=== PATIENT | male | born 1995 | race Caucasian/White ===

== ENCOUNTER 2019-08-15 13:02 | Emergency (ER) | payer OTHER, SELFPAY ==
[2019-08-15 13:12] VITALS: BP 113/83; PULSE 61; RESP 20; TEMP 36.7; O2SAT 100
--- NOTE | 2019-08-15 13:24 | ED.GENADULT ---
HPI - General Adult General Chief complaint: Unspecified Stated complaint: NEEDS RING CUT OFF Time Seen by Provider: 08/15/19 13:24 Source: patient Mode of arrival: ambulatory Limitations: no limitations History of Present Illness HPI narrative: A 23 y/o male presents to the ED with c/o a tungsten ring stuck on his right middle finger. Pt normally does not wear the ring on his middle finger, but had it on his middle finger last night and fell asleep wearing it. Pt states that the ring is a size 12 and his middle finger is probably a size 14. He denies numbness. Related Data Allergies Allergy/AdvReac Type Severity Reaction Status Date / Time ASAD Allergy Severe Anaphylactic Uncoded 08/15/19 13:15 Shock Review of Systems Review of Systems: Narrative: Constitutional: Negative for fever and chills. HENT: Negative for congestion. Eyes: Negative for blurred vision. Respiratory: Negative for cough and shortness of breath. Cardiovascular: Negative for chest pain. Gastrointestinal: Negative for nausea, vomiting, abdominal pain and diarrhea. Genitourinary: Negative for dysuria and hematuria. Musculoskeletal: Positive for ring stuck on right middle finger. Negative for back pain and neck pain. Neurological: Negative for numbness, headaches, or focal motor deficit. All systems reviewed & are unremarkable except as noted in HPI and below PMFSH Past Medical History Medical History (Updated 08/15/19 @ 14:26 by Temi Soto MD) Ankle fracture, right Constipation Depression Left wrist fracture Migraine Surgical History Surgical History (Updated 08/15/19 @ 13:30 by Ayanna Jim) H/O adenoidectomy Hx of tonsillectomy Social History Social History (Updated 08/15/19 @ 13:30 by Ayanna Jim) Smoking status: Smoker, status unknown Gender identity (if verbalized by the patient): Male Comments PCP: Dr. Santiago Exam Narrative: Exam Narrative: Constitutional: Appears well-developed. No distress. Head: Normocephalic. Nose: Nose normal. Mouth/Throat: Oropharynx is clear and moist. Eyes: Conjunctiva are normal. Neck: Normal range of motion. Neck supple. Cardiovascular: Normal rate and regular rhythm. Pulmonary/Chest: Effort normal and breath sounds normal. Abdominal: Soft. There is no tenderness. Musculoskeletal: Ring on right middle finger, slightly swollen. Neurological: Alert and oriented to person, place, and time. Skin: Skin is warm. No pallor. Psychiatric: Normal mood and affect. Course Reevaluation(s) Reevaluation #1: The ring was removed with a ring cutter. Date: 08/15/19 Time: 14:18 Vital Signs Vital signs: Vital Signs Temperature 36.7 C 08/15/19 13:12 Pulse Rate 61 08/15/19 13:12 Respiratory Rate 20 08/15/19 13:12 Blood Pressure 113/83 08/15/19 13:12 Pulse Oximetry 100 08/15/19 13:12 Temperature 36.7 C 08/15/19 13:12 Pulse Rate 61 08/15/19 13:12 Respiratory Rate 20 08/15/19 13:12 Blood Pressure 113/83 08/15/19 13:12 Pulse Oximetry 100 08/15/19 13:12 Medical Decision Making Vital Signs Vital Signs: Vital Signs Temperature 36.7 C 08/15/19 13:12 Pulse Rate 61 08/15/19 13:12 Respiratory Rate 20 08/15/19 13:12 Blood Pressure 113/83 08/15/19 13:12 Pulse Oximetry 100 08/15/19 13:12 Temperature 36.7 C 08/15/19 13:12 Pulse Rate 61 08/15/19 13:12 Respiratory Rate 20 08/15/19 13:12 Blood Pressure 113/83 08/15/19 13:12 Pulse Oximetry 100 08/15/19 13:12 Discharge Plan Discharge Clinical Impression: Tight ring on finger Patient Disposition: Home, Self-Care Condition: Stable Instructions: Soft Tissue Foreign Body (ED) Follow-up/Referrals: PHYSICIAN,CD MANUFACTURING SUPERVISOR [Primary Care Provider] - Discharge Date/Time: 08/15/19 14:37
== END 2019-08-15 14:37 | disposition home or self-care (01) ==
PROVIDERS: Emergency Provider Emergency Medicine
DX: S60.442A External constriction of right middle finger, initial encounter (principal); W49.04XA Ring or other jewelry causing external constriction, initial encounter
CPT/HCPCS: 99282

== ENCOUNTER 2019-09-17 12:08 | Emergency (ER) | payer OTHER, SELFPAY ==
[2019-09-17 12:16] VITALS: BP 115/74; PULSE 65; RESP 20; TEMP 36.4; O2SAT 97
--- NOTE | 2019-09-17 12:51 | ED.URI ---
HPI - URI/Sore Throat General Chief Complaint: Upper Respiratory Infection Stated Complaint: Ear pain, sore throat Time Seen by Provider: 09/17/19 12:51 Source: patient Mode of arrival: ambulatory Limitations: no limitations History of Present Illness HPI Narrative: Duane Vernon is a 23 yo male with no prior medical condition who comes to the doctor's office because of upper respiratory symptoms of severe throat sore throat nasal discharge and differential difficulty breathing when lying down at night, has cough particularly at night but also during the day. Has felt this way x2 days Related Data Allergies Allergy/AdvReac Type Severity Reaction Status Date / Time ASAD Allergy Severe Anaphylactic Uncoded 09/17/19 12:31 Shock Review of Systems Review of Systems: Narrative: CONSTITUTIONAL: Denies fever, chills, sweats. EYES: Denies visual changes, redness, discharge. ENT: Has rhinorrhea, congestion, sore throat, otalgia. CARDIOVASCULAR: Denies chest pain, palpitations, edema. RESPIRATORY: Denies dyspnea, has wheezing, has cough GASTROINTESTINAL: Denies abdominal pain, nausea, vomiting, diarrhea. GENITOURINARY: Denies dysuria, hematuria, abnormal discharge SKIN: Denies rash or itching. NEUROLOGIC: Denies numbness, or focal weakness. PSYCHIATRIC: Denies anxiety or depression. 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 There is no relevant family history pertinent to the presenting complaint. Exam Narrative: Exam Narrative: GENERAL: This is a well-nourished, well-developed patient, in mild distress. HEAD: normocephalic, atraumatic. EYES: Sclera clear/white. Vision is grossly intact. EARS: External ears normal, auditory canals clear, R without drainage,L is tender w effusion. TMs normal without perforation. Hearing grossly intact. NOSE: External nose normal with nasal discharge, nares with redness, rhinorrhea. THROAT: Mucous membranes moist, posterior pharynx erythema NECK: Neck supple, non-tender CARDIOVASCULAR: Regular rate and rhythm without murmurs, gallops, or rubs. RESPIRATORY: Diminished to auscultation. Breath sounds equal bilaterally. Mild diffuse wheezes, no rales, or rhonchi. GASTROINTESTINAL: Abdomen soft, non-tender, SKIN: warm, intact with no suspicious lesions or rash, good texture and turgor. NEURO: awake, alert, and oriented to person, place and time. There were no obvious focal neurologic abnormalities. Steady gait EXTREMITIES: Normal range of motion. No edema. BACK: Nontender without deformity or crepitance. No flank tenderness. Course Course Emergency Course: Flu negative, strep negative Treat symptoms: Prednisone, codeine cough syrup, Mucinex, cepacol Vital Signs Vital signs: Vital Signs Temperature 97.5 F L 09/17/19 12:16 Pulse Rate 65 09/17/19 12:16 Respiratory Rate 20 09/17/19 12:16 Blood Pressure 115/74 09/17/19 12:16 Pulse Oximetry 97 09/17/19 12:16 Temperature 97.5 F L 09/17/19 12:16 Pulse Rate 65 09/17/19 12:16 Respiratory Rate 20 09/17/19 12:16 Blood Pressure 115/74 09/17/19 12:16 Pulse Oximetry 97 09/17/19 12:16 MDM - URI/Sore Throat Differential Diagnosis Differential
== END 2019-09-17 13:03 | disposition home or self-care (01) ==
PROVIDERS: Emergency Provider Nurse Practitioner; PCP Family Medicine
DX: J06.9 Acute upper respiratory infection, unspecified (principal); J02.9 Acute pharyngitis, unspecified
CPT/HCPCS: 87081; 87804; 87880; 99213; G0463

== ENCOUNTER 2021-04-20 08:51 | Emergency (ER) | payer OTHER, SELFPAY ==
--- NOTE | ~2021-04-20 | XR_ITS ---
XR chest 2V DATE: 04/20/2021 10:13 INDICATION: Psych evaluation TECHNIQUE: PA and lateral chest COMPARISON: None FINDINGS: Normal heart size. No hilar or mediastinal enlargement. The lungs are clear of infiltrate o r consolidation. No pleural effusion or pulmonary vascular congestion or pneumothorax. Included skele alexander structures are unremarkable. IMPRESSION: No active cardiopulmonary disease Reviewed, dictated and finalized at location A.
[2021-04-20 09:00] VITALS: BP 146/89; PULSE 84; RESP 16; TEMP 37.4; O2SAT 100
--- NOTE | 2021-04-20 09:55 | ED.GENADULT ---
HPI - General Adult General Chief complaint: Psychiatric Symptoms Stated complaint: wants help with Adderall addiction Time Seen by Provider: 04/20/21 09:54 Source: patient Mode of arrival: ambulatory Limitations: no limitations History of Present Illness HPI narrative: Patient came in at the request of his for his Adderall addiction and his decision last night to contact someone else regarding other drug to purchase. He tells me that he has been taking his mother's Adderall off and on for the last 5 years, he was clean for 9 months in the last few weeks began taking approximately 5 pills at a time and taking them over the course of the week. There are 20 mg tabs. He states that he has not in the past thought of harming himself but today when his threw him out he thought he may be better off and considered taking a loaded handgun from their home when he left. He did not and he believes his is move those guns to her parents house. He has no homicidal ideation. He states that there is a long history of mental health issues in the family including a suicide by the maternal grandfather. He is here today because his told him he needs to get some help. Onset (ago): year(s) Related Data Home Medications Medication Instructions Recorded Confirmed No Home Medications 04/20/21 Allergies Allergy/AdvReac Type Severity Reaction Status Date / Time ASAD Allergy Severe Anaphylactic Uncoded 04/20/21 09:05 Shock Review of Systems Review of Systems: All systems reviewed & are unremarkable except as noted in HPI and below [facility] Past Medical History Medical History (Updated 04/20/21 @ 22:18 by Kaye Ricardo PA-C) Ankle fracture, right Constipation Depression Left wrist fracture Migraine Surgical History Surgical History H/O adenoidectomy Hx of tonsillectomy Family History Family History Other No active medical problems Social History Social History (Updated 04/20/21 @ 10:09 by Kaye Ricardo PA-C) Smoking status: Current every day smoker Tobacco type: cigarettes Alcohol intake: never Substance use type: amphetamines and prescription drug Living arrangements: with family Occupation/Education: unemployed Gender identity (if verbalized by the patient): Male Exam Const: General: cooperative, healthy appearing and comfortable HENMT: Mouth: Yes Normal oral and palatal mucosa present Teeth and gingiva: dentition normal Throat: posterior oropharynx normal Eyes: General: appearance normal, both eyes and all related structures Neck: Neck: no lymphadenopathy Resp: Effort & Inspection: normal respiratory effort Auscultation: clear to auscultation bilaterally Cardio: Rate: regular rate Rhythm: regular rhythm GI: Inspection: normal to inspection GI Palp: Yes Soft to palpation Auscultation: normal bowel sounds Skin: General skin exam: normal color Lesions: lesion noted (scalp and legs, pt states from picking) Neuro: General: patient oriented x3 and moves all extremities Cognition (Neuro): normal cognition Speech: normal speech Extrem: General: normal to inspection, full ROM and capillary refill normal Psych: Appearance: disheveled Speech and movement: Normal speech and movement present Affect: normal affect Attitude: cooperative Thought process: Normal thought process present Thought content: Yes Suicidality present Course Course Emergency Course: Patient is medically cleared to be evaluated by psych intake. His drug screen is positive only for amphetamines and marijuana and he is admitted to both. Patient is cleared for inpatient psychiatric treatment. 2200: Patient's mother is here and asking for an update and for the patient be released to her care. She assures me that they have cleaned up all the weapons and swept the house for pills, they have l
--- NOTE | 2021-04-20 10:00 | PC.NURSE ---
ERPA to bedside for pt assessment. When speaking with pt, pt disclosed to PA that he has been having suicidal thoughts today. Pt disclosed to PA that he has been having thoughts to get ahold of a gun and hurt himself. Pt moved to room 15 for safety. Pt placed in paper scrubs and belongings secured at nurses station. Pt placed on 1:1 observation. Pt agreeable to plan for medical clearance and crisis evaluation.
--- NOTE | 2021-04-20 10:04 | ECG_ITS ---
Measurements Intervals [place] Rate: 78 P: 50 WA: 162 QRS: -5 QRSD: 100 T: -3 QT: 348 QTc: 397 Interpretive Statements SINUS RHYTHM WITH SINUS ARRHYTHMIA DELAYED PRECORDIAL R/S TRANSITION BASELINE ARTIFACT- I, II, III, AVF BORDERLINE ECG Electronically Signed On 04-20-2021 11:04:32 CDT by Alden Collins D.O.
[2021-04-20 10:32] LABS: Basophils Absolute Auto 0.1 K/mm3 (0.0-0.1); Basophils Percent Auto 0.7 % (0.2-1.2); Eosinophils Absolute Auto 0.3 K/mm3 (0-0.3); Eosinophils Percent Auto 3.5 % (0-4.4); Hematocrit 42.3 % (42.0-52.0); Hemoglobin 14.4 g/dL (14.0-18.0); Immature Granulocyte Absolute 0.03 K/mm3 (0.00-0.031); Immature Granulocyte Percent A 0.4 % (0-0.5); Lymphocytes Percent Auto 17.3 % (18.3-44.2); Mean Corpuscular Hemoglobin 32.4 pg (26-34); Mean Corpuscular Volume 95.1 fl (80-100); Monocytes Absolute Auto 0.6 K/mm3 (0.1-0.6); Monocytes Percent Auto 8.3 % (2.6-8.5); Neutrophils Absolute Auto 5.3 K/mm3 (1.3-6.7); Neutrophils Percent Auto 69.8 % (45.5-73.1); Platelet Count Result 248 k/mm3 (150-375); Red Blood Count 4.45 M/mm3 (4.6-6.20); Red Cell Distribution Width 13.3 % (11.5-14.5); White Blood Count 7.5 K/mm3 (4.5-10.0)
[2021-04-20 10:52] LABS: Ethanol < 10 mg/dL (<10)
[2021-04-20 10:53] LABS: Alanine Aminotransferase 16 U/L (4-50); Albumin Level 4.6 g/dL (3.5-5.1); Alkaline Phosphatase 77 U/L (38-126); Anion Gap 9 mmol/L (8-16); Aspartate Amino Transferase 23 U/L (17-59); Bilirubin,Total 0.3 mg/dL (0.2-1.3); Blood Urea Nitrogen 15 mg/dL (9-20); Calcium 9.5 mg/dL (8.4-10.2); Carbon Dioxide 25 mmol/L (22-30); Chloride 112 mmol/L (98-107); Estimated CRCL calculation 167 ml/min; Estimated Glomerular Filt Rate > 60; Glucose 106 mg/dL (65-110); Potassium 3.8 mmol/L (3.4-5.0); Sodium 146 mmol/L (137-145)
[2021-04-20 11:22] LABS: Thyroid Stimulating Hormone 0.666 uIU/mL (0.465-4.680)
[2021-04-20 11:27] LABS: Add Urine Microscopic? YES; Appearance Urine Clear (Clear); Bilirubin Urine Negative (Negative); Blood Urine Negative (Negative); Color Urine Yellow (Yellow); Glucose Urine UA Negative (Negative); Ketones Urine Negative (Negative); Leukocyte Esterase Ur Negative LEU/UL (Negative); Mucus Urine Heavy /lpf; Nitrate Urine Negative (Negative); Protein Urine 1+ mg/dL (Negative); RBC Urine 0-2 /hpf (0-2); Squamous Epithelial Cell Urine Rare /hpf (Few); Urobilinogen Urine Negative mg/dL (<2.0); WBC Urine 0-3 /hpf
[2021-04-20 12:14] LABS: Barbiturate Screen Urine Negative (Negative); Benzodiazepines Screen Urine Negative (Negative)
[2021-04-20 12:17] LABS: Amphetamine Screen Urine Positive (Negative); Cannabinoid Screen Urine Positive (Negative); Cocaine Screen Urine Negative (Negative); Methadone Screen Urine Negative (Negative); Opiate Screen Urine Negative (Negative); Phencyclidine Screen Urine Negative (Negative)
--- NOTE | 2021-04-20 15:00 | PC.NURSE ---
Patient states he is voluntary for psychiatric placement. COVID swab obtained for bed placement. Gina from crisis also reports patient was very hesitant at first for psychiatric treatment so an involuntary petition was also signed.
[2021-04-20 15:19] LABS: EDCOVIDSCREEN Negative (Negative)
--- NOTE | 2021-04-20 15:31 | PC.NURSE ---
COVID result negative, Gina contacted and is attempting to find bed placement.
[2021-04-20 18:21] LABS: Acetaminophen < 10 ug/mL (10-30); Salicylate < 1.0 mg/dL (2-20)
[2021-04-20 18:50] VITALS: BP 124/72; PULSE 72; RESP 18; O2SAT 98
--- NOTE | 2021-04-20 19:13 | PC.NURSE ---
Pt sitting upright in bed, conversing with sitter at bedside. Assumed care of pt.
--- NOTE | 2021-04-20 21:37 | PC.NURSE ---
Benjie, staff at [facility] called ED and requested update from this RN. reports she will present pt to team and they will call us back with decision.
--- NOTE | 2021-04-20 21:43 | PC.NURSE ---
Pt in ED 15. No medical monitoring equipment present in room. No unnecessary supplies in room.
--- NOTE | 2021-04-20 21:57 | PC.NURSE ---
Pt accepted at [facility] by Dr. Rodgers. Report given to Benjie RN, Pt assigned to room 318.
--- NOTE | 2021-04-20 22:19 | PC.NURSE ---
[facility] notified of pt transfer and need for transport.
--- NOTE | 2021-04-20 22:23 | PC.NURSE ---
called [facility] to request transport. They will call back with and ETA after getting insulation supervisor approval.
--- NOTE | 2021-04-20 22:39 | PC.NURSE ---
Pt refused to sign EMTALA consent for transport.
--- NOTE | 2021-04-20 22:48 | PC.NURSE ---
called [facility] to request transport.
--- NOTE | 2021-04-20 22:58 | PC.NURSE ---
Sitter remains at bedside. Mother in recliner at bedside. This RN informed by melody that pt getting agitated and upset that he is involuntary and he wants to go to [facility], not [facility] [place]. This RN in to speak with pt - Explained safety concerns for pt if he attempts to elope. This RN updated ED MD Phillip, who ordered PO Ativan for pt. Offered to pt, who refused it.
--- NOTE | 2021-04-20 23:11 | PC.NURSE ---
[facility] left the facility. Called [facility] to inquire- they are a 911 truck. called [facility] - declined [facility] declined. Requesting [facility].
--- NOTE | 2021-04-20 23:39 | PC.NURSE ---
Erin only doing emergency calls timmy. Called [facility] to request transport. Accepted. ETA 1 hour 20 minutes. Unit coming from [facility].
--- NOTE | 2021-04-20 23:44 | PC.NURSE ---
Pt apologized to this RN for prior behavior. verbalized understanding of transfer. a/o x 4. again declined PO ativan.
--- NOTE | 2021-04-20 23:45 | PC.NURSE ---
[facility] ETA now 0100. Susan Waldrop updated on pt condition.
[2021-04-21 01:18] VITALS: BP 131/83; PULSE 71; RESP 18; TEMP 36.7; O2SAT 98
== END 2021-04-21 01:28 ==
PROVIDERS: Physician Assistant; Emergency Provider Emergency Medicine; PCP Family Medicine
DX: R45.851 Suicidal ideations (principal); F15.90 Other stimulant use, unspecified, uncomplicated; Z20.822 Contact with and (suspected) exposure to COVID-19
CPT/HCPCS: 36415; 71046; 80053; 80307; 81001; 84443; 85025; 87426; 93005; 99285; C9803

== ENCOUNTER 2022-07-05 15:21 | Inpatient (IN) | payer OTHER, SELFPAY ==
[2022-07-05] VITALS (20 sets, daily range): BP systolic 130–163; BP diastolic 72–94; PULSE 73–93; RESP 10–21; TEMP 37–37.3; O2SAT 99–100
--- NOTE | ~2022-07-05 | CT_ITS ---
EXAMINATION: CT diagnostic chest w con DATE: 07/09/2022 09:33 INDICATION: Pneumonia and shortness of breath TECHNIQUE: Transaxial computed tomographic images of the chest were obtained after the administration of 75 cc of Omnipaque 350 intravenous contrast. The dose-length product (DLP) was 248.05 mGy-cm. Ite rative reconstruction was used. COMPARISON: 07/05/2022 FINDINGS: Again seen are numerous subcentimeter bilateral nodules, with a mid and lower lung zone pre dominance, without significant change. No pleural effusion or pneumothorax. No pathologically enlarge d thoracic lymph nodes are identified. The heart size is normal. Mild bilateral gynecomastia is noted . IMPRESSION: 1. Multiple bilateral pulmonary nodules without significant change, likely infectious/inflammatory or less likely septic emboli. Reviewed, dictated and finalized at location L. L POLISHER IMPRESSION: 1. Multiple bilateral pulmonary nodules without significant change, likely infe ctious/inflammatory or less likely septic emboli.
--- NOTE | ~2022-07-05 | CT_ITS ---
EXAMINATION: CTA chest PE protocol DATE: 07/05/2022 21:29 INDICATION: Chest pain, dyspnea TECHNIQUE: Computed tomography angiography (CTA) of the chest was performed with 100 mL Omnipaque-350 intravenous contrast timed to evaluate the pulmonary arteries. Coronal maximum intensity projection 3D-reconstructions were created by the technologist. Automated exposure control and iterative reconst ruction technique were employed. Exam dose: 412.85 mGy-cm total exam DLP. COMPARISON: 07/05/2022 2 view chest FINDINGS: There is diagnostic contrast enhancement of the pulmonary arteries and no evidence of pulmo nary embolism. No thoracic aortic aneurysm or dissection. No hilar or mediastinal mass lesion or lymphadenopathy. There are numerous scattered predominantly peripheral shaggy appearing small nodular densities, most numerous in the lower lobes, greater on the right, likely infectious, or possibly septic emboli. Normal morphology of the adrenal glands. IMPRESSION: Numerous bilateral peripheral shaggy small nodular infiltrates or densities scattered th roughout both lungs, most prominent in the lower lobes, right greater than left. Consider bilateral p neumonia, granulomatous disease, septic pulmonary emboli No pulmonary artery emboli Reviewed, dictated and finalized at Location A. Reviewed, dictated and finalized at location A. [employer]ING [employer] IMPRESSION: Numerous bilateral peripheral shaggy small nodular infiltrates or densities scattered throughout both lungs, most prominent in the lower lobes, r ight greater than left. Consider bilateral pneumonia, granulomatous disease, se ptic pulmonary emboli No pulmonary artery emboli
--- NOTE | ~2022-07-05 | XR_ITS ---
Clinical Indication: Chest pain PA and lateral views of the chest: Comparison: 04/20/2021 Findings: The lungs are clear, without evidence of focal consolidation or pleural effusion. Cardiome diastinal silhouette is within normal limits. Bones and soft tissues are unremarkable. Impression: Normal chest. Reviewed, dictated and finalized at location . F MEDICAL OFFICER Impression: Normal chest.
--- NOTE | 2022-07-05 15:29 | ECG_ITS ---
Measurements Intervals [place] Rate: 77 P: 58 MD: 162 QRS: 9 QRSD: 101 T: 36 QT: 357 QTc: 406 Interpretive Statements SINUS RHYTHM WITH SINUS ARRHYTHMIA NORMAL ELECTROCARDIOGRAM COMPARED TO ECG 04/20/2021 10:57:58 NO SIGNIFICANT CHANGES Electronically Signed On 07-05-2022 20:08:56 FREIGHT FLOW SALES LEADER by Mohamud Hart M.D.
[2022-07-05 15:49] LABS: Basophils Absolute Auto 0.1 K/mm3 (0.0-0.1); Basophils Percent Auto 0.5 % (0.2-1.2); Eosinophils Absolute Auto 0.5 K/mm3 (0-0.3); Eosinophils Percent Auto 5.2 % (0-4.4); Hematocrit 44.2 % (42.0-52.0); Hemoglobin 14.8 g/dL (14.0-18.0); Immature Granulocyte Absolute 0.02 K/mm3 (0.00-0.031); Immature Granulocyte Percent A 0.2 % (0-0.5); Lymphocytes Absolute Auto 2.06 K/mm3 (0.9-3.2); Mean Corpuscular HGB Conc 33.5 g/dl (32-36); Mean Corpuscular Hemoglobin 31.2 pg (26-34); Mean Corpuscular Volume 93.2 fl (80-100); Mean Platelet Volume 10.7 fl (7.4-10.4); Monocytes Absolute Auto 0.8 K/mm3 (0.1-0.6); Monocytes Percent Auto 8.1 % (2.6-8.5); Neutrophils Absolute Auto 6.4 K/mm3 (1.3-6.7); Platelet Count Result 257 k/mm3 (150-375); Red Blood Count 4.74 M/mm3 (4.6-6.20); Red Cell Distribution Width 12.6 % (11.5-14.5); White Blood Count 9.8 K/mm3 (4.5-10.0)
[2022-07-05 15:58] LABS: Alanine Aminotransferase 18 U/L (6-50); Albumin Level 4.7 g/dL (3.5-5.1); Alkaline Phosphatase 87 U/L (38-126); Anion Gap 7 mmol/L (8-16); Aspartate Amino Transferase 22 U/L (17-59); Bilirubin,Total 0.4 mg/dL (0.2-1.3); Blood Urea Nitrogen 16 mg/dL (9-20); Carbon Dioxide 28 mmol/L (22-30); Chloride 108 mmol/L (98-107); Estimated CRCL calculation 155 ml/min; Estimated Glomerular Filt Rate > 60; Glucose 98 mg/dL (65-110); INR 1.1; Lipase 42 U/L (23-300); Potassium 3.5 mmol/L (3.4-5.0); Prothrombin Time 13.7 Seconds (11.1-14.7); Sodium 143 mmol/L (137-145)
[2022-07-05 15:59] LABS: Partial Thromboplastin Time 33.2 SECONDS (22.3-36.8)
[2022-07-05 16:09] LABS: Troponin I < 0.012 ng/mL (0.000-0.034)
[2022-07-05 19:08] LABS: Troponin I < 0.012 ng/mL (0.000-0.034)
--- NOTE | 2022-07-05 20:34 | ED.CHESTPAIN ---
HPI - Chest Pain General Chief Complaint: Chest Pain Stated Complaint: chest and neck pain Time Seen by Provider: 07/05/22 20:29 Source: RN notes reviewed History of Present Illness HPI narrative: Patient presents emergency department from home for chest pain. Patient states that chest pain began when he awoke from sleeping at 11 AM this morning. He states that chest pain is with midsternal chest and went up into his throat he states the pain is described as sharp and stabbing is worse with movement and stretching and improved with rest he states he does feel mildly short of breath with the symptoms. He denies any fevers or chills abdominal pain states he had some mild nausea earlier but denies any nausea since that time denies any vomiting or diarrhea. States he not take any medication for this and Related Data Home Medications Medication Instructions Recorded Confirmed No Home Medications 04/20/21 Allergies Allergy/AdvReac Type Severity Reaction Status Date / Time ASAD Allergy Severe Anaphylactic Uncoded 04/20/21 09:05 Shock Review of Systems Review of Systems: Gen.: Denies fevers or chills ENT: Denies congestion Respiratory: Reports shortness of breath denies cough CV: See HPI GI: Denies abdominal pain emesis or diarrhea Musculoskeletal: Denies back pain or muscle pain Neuro: Denies numbness, tingling, weakness or focal weakness Skin: Denies rash Except as documented, all other systems reviewed and negative [facility] Past Medical History Medical History (Updated 07/05/22 @ 22:20 by Tylor Francis DO) Ankle fracture, right Constipation Depression Left wrist fracture Migraine Surgical History Surgical History H/O adenoidectomy Hx of tonsillectomy Family History Family History Other No active medical problems Social History Social History (Updated 07/05/22 @ 21:49 by Tylor Francis DO) Smoking status: Current every day smoker Tobacco type: cigarettes and e-cigarettes/vaping Alcohol intake: never Substance use type: amphetamines and prescription drug Gender identity (if verbalized by the patient): Male Exam Narrative: APPEARANCE: No acute distress, nontoxic, resting in bed EYES: EOMI HEENT: Normocephalic, atraumatic, OMM RESPIRATORY: No respiratory distress Clear to auscultation bilaterally with no rhonchi wheezing or rales. CARDIOVASCULAR: Regular rate and rhythm without murmurs rubs or gallops. Chest: Chest pain worsened with Flye motion of the chest and rotation of the torso ABDOMINAL: Soft, nontender, nondistended, no rebound or guarding MUSCULOSKELETAl: Moves all extremities. No clubbing, cyanosis or edema. NEURO: Awake and alert. Following commands, speech normal, no focal deficits SKIN:: Warm, dry. No rashes lesions or abrasions PSYCHIATRIC: Normal affect/mood, Course Course Emergency Course: Following CT scan discussed with patient patient does smoke cigarettes in the past and currently vapes he denies ever using any IV drugs states he does occasionally smoke marijuana Discussed with Dr. Saab presentation work-up agrees with admission request echo in a.m. plus blood culture CRP and sed rate and started on Rocephin and Zithromax Discussed with patient and family results of workup and diagnosis. Discussed need for admission. Patient and family understand and agree to current treatment plan Vital Signs Vital signs: Vital Signs Temperature 98.6 F 07/05/22 15:27 Pulse Rate 93 07/05/22 15:27 Respiratory Rate 20 07/05/22 15:27 Blood Pressure 163/91 H 07/05/22 15:27 Pulse Oximetry 100 07/05/22 15:27 Oxygen Delivery Room Air 07/05/22 15:27 Temperature 99.1 F 07/05/22 18:44 Pulse Rate 73 07/05/22 21:13 Respiratory Rate 14 07/05/22 21:13 Blood Pressure 131/77 07/05/22 21:13 Pulse Oximetry 100 07/05/22 21:13 Oxy
[2022-07-05] MEDS: KETOROLAC 30 MG/ML VIAL (*BKC) IV PUSH (20:55)
[2022-07-05 21:16] LABS: D Dimer 0.53 ug/mL (<0.48)
[2022-07-05 23:54] LABS: Lactic Acid Reflex 0.7 mmol/L (0.7-2.0)
[2022-07-05 23:58] LABS: CRP < 0.5 mg/dL (<1.0)
[2022-07-06] VITALS (8 sets, daily range): BP systolic 102–127; BP diastolic 53–71; PULSE 68–86; RESP 14–19; TEMP 36.3–36.9; O2SAT 97–98
--- NOTE | 2022-07-06 | ECHO_ITS ---
Patient Info Name: Duane Vernon Age: 26 years : 1995 Gender: Male Ht: 77 in Wt: 210 lbs BSA: 2.28 m2 HR: 59 bpm BP: 127 / 71 mmHg Heart Rhythm: Sinus Rhythm Technical Quality: Good Exam Date: 07/06/2022 6:39 AM Exam Location: [facility] Pulmonary Patient Status: Inpatient Admit Date: 07/05/2022 Staff Ordering Physician: Tylor Francis DO Deputy Register Of Deeds: Carmela Juarez RDCS Attending Provider: Dianna Saab DO Referring Physician: Tito SAWANT; Exam Type: CA echo dop color flow w con Study Info Indications I26.90 - Septic pulmonary embolism without acute cor pulmonale Complete two-dimensional, color flow and Doppler transthoracic echocardiogram is performed with contrast to opacify the left ventricle and to improve the deliniation of the left ventricle endocardial borders. Contrast/Agitated Saline Contrast/Ag. Saline: Definity Amount: 4.00 ml Administered By: Carmela Juarez [facility] Summary 1. Left ventricular chamber dimension is normal. 2. Left ventricular systolic function is normal, estimated at 55-60%. 3. There is mildly increased left ventricular wall thickness. 4. The left ventricular diastolic function is normal. 5. There is mild tricuspid valve regurgitation. 6. No pulmonary hypertension, estimated pulmonary arterial systolic pressure is 24 mmHg. 7. There is trace mitral valve regurgitation. 8. There is trace aortic valve regurgitation. 9. There is no aortic valve stenosis. 10. The aortic valve is not well visualized. Recommendations * consider bubble study to assess for intracardiac shunt if clinically indicated. Left Ventricle Left ventricular chamber dimension is normal. Left ventricular systolic function is normal, estimated at 55-60%. There is mildly increased left ventricular wall thickness. The left ventricular diastolic function is normal. Right Ventricle Right ventricular chamber dimension is normal. Right ventricular systolic function is normal. Left Atria Left atrial chamber dimension is mildly enlarged. Right Atria Right atrial chamber dimension is mildly enlarged. Aortic Valve The aortic valve is not well visualized. There is no aortic valve stenosis. There is trace aortic valve regurgitation. Pulmonic Valve The pulmonic valve is not well visualized. There is mild pulmonic regurgitation. Mitral Valve The mitral valve has normal leaflets. There is trace mitral valve regurgitation. Tricuspid Valve The tricuspid valve leaflets are normal. There is mild tricuspid valve regurgitation. No pulmonary hypertension, estimated pulmonary arterial systolic pressure is 24 mmHg. Pericardium/Pleural The pericardium appears normal. There is no pericardial effusion. Inferior Vena Cava Normal inferior vena cava with >50% collapse upon inspiration consistent with normal right atrial pressure, 5 mmHg. Aorta The aortic root size at the sinus of Valsalva is normal. Left Ventricular Outflow Tract Name Value Normal LVOT 2D LVOT Diameter 2.36 cm LVOT Doppler LVOT Peak Gradient
[2022-07-06 00:11] LABS: Erythrocyte Sedimentation Rate 16 mm/hr (0-20)
[2022-07-06 01:01] LABS: Amphetamine Screen Urine Negative (Negative); Barbiturate Screen Urine Negative (Negative); Benzodiazepines Screen Urine Negative (Negative); Cannabinoid Screen Urine Positive (Negative); Cocaine Screen Urine Negative (Negative); Methadone Screen Urine Negative (Negative); Opiate Screen Urine Negative (Negative); Phencyclidine Screen Urine Negative (Negative)
[2022-07-06 01:13] LABS: Influenza A QL RT-PCR Negative (Negative); Influenza B QL RT-PCR Negative (Negative); SARS-CoV-2 RNA PCR Negative
[2022-07-06 01:18] LABS: Troponin I < 0.012 ng/mL (0.000-0.034)
--- NOTE | 2022-07-06 01:56 | ADMGEN ---
This patient, Duane Vernon, was admitted to [facility] Surg Room 310-01. Patient/family oriented to hospital policies and general routines including ID bracelet, bed and alarms, visiting hours, pain management, procedures, bathroom and other care routines, personal items, smoking policy, room service/diet, and visiting hours. Information on how to activate the Rapid Response Team has been discussed. Patient/Family are encouraged to report perceived risks to care and to ask questions if they do not understand what they are told or what they should do.
--- NOTE | 2022-07-06 04:13 | PM.IMHP ---
H&P: HPI History of Present Illness Date/Time: 07/06/22 04:13 Chief Complaint: Chest pain Narrative: 26-year-old male with past medical history of anxiety and nicotine, marijuana and vaping who presented to the ER with chest pain. The patient reportedly woke up on the morning of the and that felt short of breath and felt as if someone was sitting on his chest. He reported that the symptoms were similar to when he has had prior difficulty with anxiety. He reports he has had significant social stressors with the of his 5-week-old son and buying a new house. He took his anxiety meds and tried to come down. Despite these efforts he continued to feel short of breath and have an uncomfortable sensation in his chest. He reports that the sensation was worse with activity. He denies any cough, congestion, fevers or chills. He has not had any recent ill contacts. He denies hemoptysis. He has not had any lower extremity swelling or edema. In the ER his white count was normal but he had minimally elevated D-dimer in this instigated the patient having a CTA of the chest performed despite normal chest x-ray. CTA of the chest demonstrate numerous bilateral peripheral shotty small nodule infiltrates or densities scattered throughout both lungs most prominent in the lower lobes right greater than left consider bilateral pneumonia, granulomatous disease or septic pulmonary emboli. Patient denies any known history of granulomatous disease. He reports that his chest pain improved after he received aspirin and Toradol in the ER. Given the CT findings he will start on empiric antibiotic therapy. Given some potential for possible septic emboli being in the differential an echocardiogram was ordered by the ER staff. The patient does not have a murmur on exam he denies any IV drug use. He does have a distant history of abuse of Adderall but he would take these orally. He has not done this in about a year since he had psychiatric treatment. He does still smoke marijuana somewhat frequently. He reports that he had a small bump to the anterior mcclain that looks almost like a bug bite which he has caused an overlying abrasion. He denies any erythema or drainage from the area. He has a small accompanying abrasion just lateral to the circular lesion. Review of Systems Review of Systems: 12 systems were reviewed with pertinent positives and negatives per HPI. Except as documented in the HPI, all other systems were reviewed and are negative. [facility] Past Medical History Medical History (Updated 07/06/22 @ 08:27 by Dianna Saab DO) Ankle fracture, right Anxiety Constipation Crohn's disease Depression Left wrist fracture Migraine Surgical History Surgical History H/O adenoidectomy Hx of tonsillectomy Family History Family History (Updated 07/06/22 @ 08:25 by Dianna Saab DO) Father Congestive heart failure, Onset Age: 50 Heart disease Nicotine dependence Mother Obesity Hypothyroidism Social History Social History (Updated 07/06/22 @ 08:27 by Dainna Saab DO) Social History: He recently moved into a new house with his and baby. The patient has a son born May 2022. He used to smoke half a pack of cigarettes per day but transition to vaping. He also smokes marijuana on a somewhat frequent basis. 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 He denies any IV drug use. He drinks alcohol moderately approximately once a month. He is employed as a electrical maintenance worker. Code status: Full code Surrogate decision maker: Smoking packs per day: 0.5 Smoking cigarettes per day: 10.0 Years smoked: 8 Smoking pack-years: 4.00 Smoking status: Current every day smoker Tobacco type: cigarettes and e-cigarettes/vaping Second hand tobacco smoke exposure: Yes Alcohol intake: never Substance use:
[2022-07-06 06:29] LABS: Basophils Absolute Auto 0.1 K/mm3 (0.0-0.1); Basophils Percent Auto 0.7 % (0.2-1.2); Eosinophils Absolute Auto 0.6 K/mm3 (0-0.3); Eosinophils Percent Auto 8.5 % (0-4.4); Hematocrit 40.6 % (42.0-52.0); Hemoglobin 13.7 g/dL (14.0-18.0); Immature Granulocyte Absolute 0.01 K/mm3 (0.00-0.031); Immature Granulocyte Percent A 0.1 % (0-0.5); Lymphocytes Absolute Auto 2.28 K/mm3 (0.9-3.2); Lymphocytes Percent Auto 31.4 % (18.3-44.2); Mean Corpuscular HGB Conc 33.7 g/dl (32-36); Mean Corpuscular Hemoglobin 31.4 pg (26-34); Mean Corpuscular Volume 93.1 fl (80-100); Mean Platelet Volume 10.7 fl (7.4-10.4); Monocytes Absolute Auto 0.8 K/mm3 (0.1-0.6); Monocytes Percent Auto 11.4 % (2.6-8.5); Neutrophils Absolute Auto 3.5 K/mm3 (1.3-6.7); Neutrophils Percent Auto 47.9 % (45.5-73.1); Platelet Count Result 242 k/mm3 (150-375); Red Blood Count 4.36 M/mm3 (4.6-6.20); Red Cell Distribution Width 12.7 % (11.5-14.5); White Blood Count 7.3 K/mm3 (4.5-10.0)
[2022-07-06 06:36] LABS: Alanine Aminotransferase 16 U/L (6-50); Albumin Level 4.1 g/dL (3.5-5.1); Alkaline Phosphatase 73 U/L (38-126); Anion Gap 6 mmol/L (8-16); Aspartate Amino Transferase 21 U/L (17-59); Bilirubin,Total 0.5 mg/dL (0.2-1.3); Blood Urea Nitrogen 15 mg/dL (9-20); Calcium 8.6 mg/dL (8.4-10.2); Carbon Dioxide 29 mmol/L (22-30); Chloride 108 mmol/L (98-107); Estimated CRCL calculation 175 ml/min; Estimated Glomerular Filt Rate > 60; Glucose 94 mg/dL (65-110); Potassium 3.3 mmol/L (3.4-5.0); Sodium 143 mmol/L (137-145)
[2022-07-06] MEDS: CITALOPRAM HYDROBROMIDE 10 MG TABLET PO (09:53)
[2022-07-06] MEDS: POTASSIUM CHLORIDE 20 MEQ TABLET 40 MEQ PO (09:53)
--- NOTE | 2022-07-06 15:05 | PM.IMPN ---
Progress Note: A&P Assessment and Plan (1) Abnormal CT of the chest: Code(s): R93.89 - Abnormal findings on diagnostic imaging of other specified body structures Status: Acute Assessment and Plan: Could be due to commute choir pneumonia verses vaping associated lung injury. Will continue antibiotic therapy with Rocephin and azithromycin. Patient is adamant that he has no intention of smoking marijuana or vaping from here on out. Also on the differential but less likely is septic pulmonary emboli. Will obtain echocardiogram. If no evidence of vegetation patient be discharged home on oral antibiotic for treatment of community-acquired pneumonia with outpatient follow-up in 6-8 weeks for repeat imaging. 07/06/2022 interval history: patient presented with chest pain and shortness of breath, 3 sets of cardiac enzymes are negative there are no acute changes on EKG, however CTA scan of the chest did not show pulmonary emboli, it showed numerous bilateral peripheral shaggy small nodular infiltrates or densities scattered throughout both lungs, most prominent in the lower lobes, right greater than left. Consider bilateral pneumonia, granulomatous disease, septic pulmonary emboli, patient states is unable to take a deep breath, unlikely patient has septic emboli most likely pneumonia, patient is being treated with ceftriaxone and azithromycin, will follow-up on blood culture, will continue to monitor will repeat the CT scan of the chest on 07/09 will follow-up (2) Atypical chest pain: Code(s): R07.89 - Other chest pain Status: Acute Assessment and Plan: Symptoms have resolved at rest. Patient reports minimal shortness of breath when ambulating to the bathroom. Cardiac enzymes are negative. No evidence of cardiac ischemia. The patient's imaging results may also be due to granulomatous disease which is benign. His also possible is chest pressure and shortness breast may have been related to anxiety with his recent life changes. Plan Patient has been admitted as observation status. Subjective Date/time seen: 07/06/22 15:05 HPI-Narrative: 26-year-old male with past medical history of anxiety and nicotine, marijuana and vaping who presented to the ER with chest pain.? The patient reportedly woke up on the morning of the and that felt short of breath and felt as if someone was sitting on his chest.? He reported that the symptoms were similar to when he has had prior difficulty with anxiety.? He reports he has had significant social stressors with the of his 5-week-old son and buying a new house.? He took his anxiety meds and tried to come down.? Despite these efforts he continued to feel short of breath and have an uncomfortable sensation in his chest.? He reports that the sensation was worse with activity.? He denies any cough, congestion, fevers or chills.? He has not had any recent ill contacts.? He denies hemoptysis.? He has not had any lower extremity swelling or edema.? In the ER his white count was normal but he had minimally elevated D-dimer in this instigated the patient having a CTA of the chest performed despite normal chest x-ray.? CTA of the chest demonstrate numerous bilateral peripheral shotty small nodule infiltrates or densities scattered throughout both lungs most prominent in the lower lobes right greater than left consider bilateral pneumonia, granulomatous disease or septic pulmonary emboli.? Patient denies any known history of granulomatous disease.? He reports that his chest pain improved after he received aspirin and Toradol in the ER.? Given the CT findings he will start on empiric antibiotic therapy.? Given some potential for possible septic emboli being in the differential an echocardiogram was ordered by the ER staff.? The patient does not have a murmur on exam he denies any IV drug use.? He does have a distant history of abuse of Adderall but he would take these orally.? He h
[2022-07-06] MEDS: NICOTINE (*PBKC) 21 MG PATCH 1 PATCH TRANSDERM (17:50)
[2022-07-07 02:33] VITALS: BMI 26.0
[2022-07-07 05:45] VITALS: BP 109/64; PULSE 60; RESP 18; TEMP 36.5; O2SAT 98
[2022-07-07 06:58] LABS: Mean Corpuscular HGB Conc 33.3 g/dl (32-36); Mean Corpuscular Hemoglobin 31.8 pg (26-34); Mean Corpuscular Volume 95.5 fl (80-100); Mean Platelet Volume 10.6 fl (7.4-10.4); Platelet Count Result 224 k/mm3 (150-375); Red Cell Distribution Width 12.9 % (11.5-14.5); White Blood Count 5.5 K/mm3 (4.5-10.0)
[2022-07-07 07:19] LABS: Anion Gap 6 mmol/L (8-16); Blood Urea Nitrogen 15 mg/dL (9-20); Calcium 8.8 mg/dL (8.4-10.2); Carbon Dioxide 27 mmol/L (22-30); Chloride 109 mmol/L (98-107); Estimated CRCL calculation 175 ml/min; Estimated Glomerular Filt Rate > 60; Glucose 115 mg/dL (65-110); Magnesium 2.1 mg/dL (1.6-2.3); Potassium 3.7 mmol/L (3.4-5.0); Sodium 142 mmol/L (137-145)
[2022-07-07 09:57] VITALS: RESP 18; O2SAT 98
[2022-07-07] MEDS: CITALOPRAM HYDROBROMIDE 10 MG TABLET PO (09:57)
[2022-07-07] MEDS: NICOTINE (*PBKC) 21 MG PATCH 1 PATCH TRANSDERM (09:57)
[2022-07-07 13:12] VITALS: BP 121/78; PULSE 82; RESP 18; TEMP 36.2; O2SAT 100
--- NOTE | 2022-07-07 13:12 | PM.IMPN ---
Progress Note: A&P Assessment and Plan (1) Abnormal CT of the chest: Code(s): R93.89 - Abnormal findings on diagnostic imaging of other specified body structures Status: Acute Assessment and Plan: Could be due to commute choir pneumonia verses vaping associated lung injury. Will continue antibiotic therapy with Rocephin and azithromycin. Patient is adamant that he has no intention of smoking marijuana or vaping from here on out. Also on the differential but less likely is septic pulmonary emboli. Will obtain echocardiogram. If no evidence of vegetation patient be discharged home on oral antibiotic for treatment of community-acquired pneumonia with outpatient follow-up in 6-8 weeks for repeat imaging. 07/07/2022 interval history:? patient presented with chest pain and shortness of breath,? 3 sets of cardiac enzymes are negative there are no acute changes on EKG, however CTA scan of the chest did not show pulmonary emboli,? it showed??numerous bilateral peripheral shaggy small nodular infiltrates or densities scattered throughout both lungs, most prominent in the lower lobes, right greater than left. Consider bilateral pneumonia, granulomatous disease, septic pulmonary emboli,? patient stated was unable to take a deep breath, unlikely patient has septic emboli most likely pneumonia, patient is being treated with ceftriaxone and azithromycin, will follow-up on blood culture, today patient states is feeling much better compared to when he arrived, will continue to monitor will repeat the CT scan of the chest on 07/09? will follow-up blood culture and further recommendation to follow. (2) Atypical chest pain: Code(s): R07.89 - Other chest pain Status: Acute Assessment and Plan: Symptoms have resolved at rest. Patient reports minimal shortness of breath when ambulating to the bathroom. Cardiac enzymes are negative. No evidence of cardiac ischemia. The patient's imaging results may also be due to granulomatous disease which is benign. His also possible is chest pressure and shortness breast may have been related to anxiety with his recent life changes. Plan Patient has been admitted as observation status. Subjective Date/time seen: 07/07/22 13:12 07/07/2022 interval history:? patient presented with chest pain and shortness of breath,? 3 sets of cardiac enzymes are negative there are no acute changes on EKG, however CTA scan of the chest did not show pulmonary emboli,? it showed??numerous bilateral peripheral shaggy small nodular infiltrates or densities scattered throughout both lungs, most prominent in the lower lobes, right greater than left. Consider bilateral pneumonia, granulomatous disease, septic pulmonary emboli,? patient stated was unable to take a deep breath, unlikely patient has septic emboli most likely pneumonia, patient is being treated with ceftriaxone and azithromycin, will follow-up on blood culture, today patient states is feeling much better compared to when he arrived, will continue to monitor will repeat the CT scan of the chest on 07/09? will follow-up blood culture and further recommendation to follow. Exam Narrative: Patient is comfortable, NAD HEENT: eyes are clear and none icteric LUNGS: bilateral fair and with rhonchi HEART: RR S1S2 ABD: BS+, Soft and nontender Lower extremities: no edema SKIN: nonjaundiced Neuro: grossly intact. Objective Data Vital Signs Vital Signs: Vital Signs - 24 hr 07/06/22 14:00 07/06/22 22:00 07/06/22 20:00 Temperature 98.1 F 98.4 F Pulse Rate 86 74 74 Respiratory Rate 14 18 18 Blood Pressure 111/53 L 121/70 Pulse Oximetry 98 98 98 Oxygen Delivery Room Air 07/07/22 05:45 07/07/22 09:57 Temperature 97.7 F Pulse Rate 60 Respiratory Rate 18 18 Blood Pressure 109/64 Pulse Oximetry 98 98 Oxygen Delivery Room Air Intake/Output Intake/Output: Intake & Output 07/04/22 07/05/22 07/06/22 07/07/22 23:5
[2022-07-07 21:31] VITALS: BP 118/76; PULSE 79; RESP 18; TEMP 37.2; O2SAT 99
[2022-07-08 05:43] VITALS: BP 109/63; PULSE 56; RESP 18; TEMP 36.9; O2SAT 95
[2022-07-08 07:23] LABS: Hematocrit 41.9 % (42.0-52.0); Hemoglobin 14.1 g/dL (14.0-18.0); Mean Corpuscular HGB Conc 33.7 g/dl (32-36); Mean Corpuscular Hemoglobin 31.8 pg (26-34); Mean Corpuscular Volume 94.4 fl (80-100); Platelet Count Result 246 k/mm3 (150-375); Red Blood Count 4.44 M/mm3 (4.6-6.20); Red Cell Distribution Width 12.7 % (11.5-14.5); White Blood Count 7.1 K/mm3 (4.5-10.0)
[2022-07-08 07:31] LABS: Anion Gap 6 mmol/L (8-16); Blood Urea Nitrogen 19 mg/dL (9-20); Calcium 8.7 mg/dL (8.4-10.2); Carbon Dioxide 29 mmol/L (22-30); Chloride 108 mmol/L (98-107); Estimated CRCL calculation 155 ml/min; Estimated Glomerular Filt Rate > 60; Glucose 117 mg/dL (65-110); Magnesium 2.1 mg/dL (1.6-2.3); Sodium 143 mmol/L (137-145)
[2022-07-08] MEDS: NICOTINE (*PBKC) 21 MG PATCH 1 PATCH TRANSDERM (08:41)
[2022-07-08] MEDS: CITALOPRAM HYDROBROMIDE 10 MG TABLET PO (08:41)
--- NOTE | 2022-07-08 12:58 | PM.IMPN ---
Progress Note: A&P Assessment and Plan (1) Abnormal CT of the chest: Code(s): R93.89 - Abnormal findings on diagnostic imaging of other specified body structures Status: Acute Assessment and Plan: Could be due to commute choir pneumonia verses vaping associated lung injury. Will continue antibiotic therapy with Rocephin and azithromycin. Patient is adamant that he has no intention of smoking marijuana or vaping from here on out. Also on the differential but less likely is septic pulmonary emboli. Will obtain echocardiogram. If no evidence of vegetation patient be discharged home on oral antibiotic for treatment of community-acquired pneumonia with outpatient follow-up in 6-8 weeks for repeat imaging. 07/08/2022 interval history:? patient presented with chest pain and shortness of breath,? 3 sets of cardiac enzymes are negative there are no acute changes on EKG, however CTA scan of the chest did not show pulmonary emboli,? it showed??numerous bilateral peripheral shaggy small nodular infiltrates or densities scattered throughout both lungs, most prominent in the lower lobes, right greater than left. Consider bilateral pneumonia, granulomatous disease, septic pulmonary emboli,? patient stated was unable to take a deep breath, unlikely patient has septic emboli most likely pneumonia, patient is being treated with ceftriaxone and azithromycin, will follow-up on blood culture, today patient states is feeling much better compared to when he arrived, will continue to monitor will repeat the CT scan of the chest on 07/09, will follow-up on blood culture, will discuss with ID pharmacist and plan,further recommendation to follow. (2) Atypical chest pain: Code(s): R07.89 - Other chest pain Status: Acute Assessment and Plan: Symptoms have resolved at rest. Patient reports minimal shortness of breath when ambulating to the bathroom. Cardiac enzymes are negative. No evidence of cardiac ischemia. The patient's imaging results may also be due to granulomatous disease which is benign. His also possible is chest pressure and shortness breast may have been related to anxiety with his recent life changes. Plan Patient has been admitted as observation status. Subjective Date/time seen: 07/08/22 12:58 07/08/2022 interval history:? patient presented with chest pain and shortness of breath,? 3 sets of cardiac enzymes are negative there are no acute changes on EKG, however CTA scan of the chest did not show pulmonary emboli,? it showed??numerous bilateral peripheral shaggy small nodular infiltrates or densities scattered throughout both lungs, most prominent in the lower lobes, right greater than left. Consider bilateral pneumonia, granulomatous disease, septic pulmonary emboli,? patient stated was unable to take a deep breath, unlikely patient has septic emboli most likely pneumonia, patient is being treated with ceftriaxone and azithromycin, will follow-up on blood culture, today patient states is feeling much better compared to when he arrived, will continue to monitor will repeat the CT scan of the chest on 07/09, will follow-up on blood culture, will discuss with ID pharmacist and plan,further recommendation to follow. Exam Narrative: Patient is comfortable, NAD HEENT: eyes are clear and none icteric LUNGS: bilateral fair and with rhonchi HEART: RR S1S2 ABD: BS+, Soft and nontender Lower extremities: no edema SKIN: nonjaundiced Neuro: grossly intact. Objective Data Vital Signs Vital Signs: Vital Signs - 24 hr 07/07/22 13:12 07/07/22 21:31 07/08/22 05:43 Temperature 97.1 F L 99.0 F 98.4 F Pulse Rate 82 79 56 L Respiratory Rate 18 18 18 Blood Pressure 121/78 118/76 109/63 Pulse Oximetry 100 99 95 Intake/Output Intake/Output: Intake & Output 07/05/22 07/06/22 07/07/22 07/08/22 23:59 23:59 23:59 23:59 Intake Total 2159 2049 890 Output Total 100 Balance 2059 2049 890 Meds/R
[2022-07-08 16:39] VITALS: BP 135/84; PULSE 76; RESP 14; TEMP 36.6; O2SAT 96
[2022-07-08 22:00] VITALS: BP 123/75; PULSE 69; TEMP 36.6; O2SAT 99
[2022-07-09 06:00] VITALS: BP 103/59; PULSE 59; RESP 18; TEMP 36.4; O2SAT 98
[2022-07-09 07:32] LABS: Hematocrit 41.9 % (42.0-52.0); Hemoglobin 13.8 g/dL (14.0-18.0); Mean Corpuscular HGB Conc 32.9 g/dl (32-36); Mean Corpuscular Hemoglobin 31.7 pg (26-34); Mean Corpuscular Volume 96.1 fl (80-100); Mean Platelet Volume 10.8 fl (7.4-10.4); Platelet Count Result 239 k/mm3 (150-375); Red Blood Count 4.36 M/mm3 (4.6-6.20); Red Cell Distribution Width 12.7 % (11.5-14.5); White Blood Count 5.9 K/mm3 (4.5-10.0)
[2022-07-09 07:42] LABS: Anion Gap 5 mmol/L (8-16); Blood Urea Nitrogen 17 mg/dL (9-20); Calcium 8.5 mg/dL (8.4-10.2); Carbon Dioxide 29 mmol/L (22-30); Chloride 103 mmol/L (98-107); Estimated CRCL calculation 175 ml/min; Estimated Glomerular Filt Rate > 60; Glucose 127 mg/dL (65-110); Magnesium 2.1 mg/dL (1.6-2.3); Potassium 3.5 mmol/L (3.4-5.0); Sodium 137 mmol/L (137-145)
[2022-07-09] MEDS: CITALOPRAM HYDROBROMIDE 10 MG TABLET PO (09:46)
[2022-07-09 14:00] VITALS: BP 125/73; PULSE 75; RESP 18; TEMP 36.4; O2SAT 100
--- NOTE | 2022-07-09 17:18 | PM.CNPUL ---
Assessment and Plan Assessment and plan (1) Abnormal CT of the chest: Code(s): R93.89 - Abnormal findings on diagnostic imaging of other specified body structures Status: Acute Assessment and Plan: this 26-year-old man with a history anxiety, chronic nicotene vaping and also chronic heavy marihuana smoking presented with chest heaviness and some shortness of breath. Chest diagnostic studies have shown bilateral small nodular infiltrates mostly subpleurally and also at bases unchanged on the 2 chest CTs done since admission. In addition the patient had evidence of increased eosinophilic count on CBC. Patient is currently asymptomatic. Physical exam is unremarkable. On closer review of the chest CTs, there is some evidence of tree-in-bud pattern especially on coronal sections. The patient's history of nicotine vaping and marijuana smoking in conjunction with chest CT findings and also the high eosinophilic count suggests that these infiltrates are non infectious and could be related to either substance. infiltrates with increased number of eosinophils have been reported in patients who vape, which could be due to eosinophilic pneumonia. Patient has no history of asthma and on physical exam he had no wheezing to suggest obstructive airway disease. Alternatively his chest heaviness could also be due to bronchospasm related to marihuana smoking, which has also been described. Plan: I had a lengthy discussion with the patient his and his mom about the cause of these infiltrates. I told them that these are non infectious infiltrates and are most likely related to either substance he has been using for years. Patient has no history of IV drug use. Okay to DC patient home. given the elevated eosinophil count on admission I would suggest prednisone 40 mg p.o. daily for 5 days. The patient should also be prescribed rescue albuterol inhaler for p.r.n. use. Patient stated that he will discontinue both vaping and marijuana smoking. I told patient to call the Pulmonary Clinic and make an appointment to be re-evaluated in about 1 month from today. If however continues to have recurrent symptoms of chest tightness and shortness of breath to call to be seen sooner. The case was discussed with the hospitalist (2) Atypical chest pain: Code(s): R07.89 - Other chest pain Status: Acute (3) Marihuana dependence: Code(s): F12.20 - Cannabis dependence, uncomplicated Status: Acute (4) Vaping-related disorder: Code(s): U07.0 - Vaping-related disorder Status: Acute History of Present Illness History of Present Illness Consult date: 07/09/22 Chief complaint: Pulmonary Infiltrates R/O Pneumonia vs Septic Pulm Narrative: This 26-year-old man was admitted 4 days ago because of shortness of breath and chest heaviness. The patient has past medical history significant for anxiety and has been on SSRIs. Patient has been vaping for approximately 8 years and also has been smoking marijuana. He stated that he smokes marijuana and does vaping. He was in his usual state of health until approximately the day of admission when he started having some chest heaviness and shortness of breath. He had no other respiratory symptoms such as cough congestion fever chills hemoptysis or wheezing. The chest heaviness increased with activity. In the emergency room the patient was found to have elevated D-dimers and underwent chest CTA. Chest CT showed numerous bilateral peripheral shotty small nodules/infiltrates scattered throughout both lungs primarily in the lower lobes, being greater on right than left. Repeat chest CT done couple days later again showed more or less unchanged findings. In addition on CBC he was found to have elevated eosinophil count. The patient has been treated with antibiotics for possible community-acquired pneumonia. He has no history of recent respiratory infection. He was diagnosed with COVID-19 inf
--- NOTE | 2022-07-09 17:45 | PM.DS ---
DS: Admitting Diagnosis Discharge Date 07/09/2022 Admitting Diagnosis chest pain DS: Discharge Diagnosis Discharge Diagnosis (1) Abnormal CT of the chest: Code(s): R93.89 - Abnormal findings on diagnostic imaging of other specified body structures Status: Acute Assessment and Plan: Could be due to commute choir pneumonia verses vaping associated lung injury. Will continue antibiotic therapy with Rocephin and azithromycin. Patient is adamant that he has no intention of smoking marijuana or vaping from here on out. Also on the differential but less likely is septic pulmonary emboli. Will obtain echocardiogram. If no evidence of vegetation patient be discharged home on oral antibiotic for treatment of community-acquired pneumonia with outpatient follow-up in 6-8 weeks for repeat imaging. 07/08/2022 interval history:? patient presented with chest pain and shortness of breath,? 3 sets of cardiac enzymes are negative there are no acute changes on EKG, however CTA scan of the chest did not show pulmonary emboli,? it showed??numerous bilateral peripheral shaggy small nodular infiltrates or densities scattered throughout both lungs, most prominent in the lower lobes, right greater than left. Consider bilateral pneumonia, granulomatous disease, septic pulmonary emboli,? patient stated was unable to take a deep breath, unlikely patient has septic emboli most likely pneumonia, patient is being treated with ceftriaxone and azithromycin, will follow-up on blood culture, today patient states is feeling much better compared to when he arrived, will continue to monitor will repeat the CT scan of the chest on 07/09, will follow-up on blood culture, will discuss with ID pharmacist and plan,further recommendation to follow. (2) Atypical chest pain: Code(s): R07.89 - Other chest pain Status: Acute Assessment and Plan: Symptoms have resolved at rest. Patient reports minimal shortness of breath when ambulating to the bathroom. Cardiac enzymes are negative. No evidence of cardiac ischemia. The patient's imaging results may also be due to granulomatous disease which is benign. His also possible is chest pressure and shortness breast may have been related to anxiety with his recent life changes. Plan Patient has been admitted as observation status. DS: Summary Hospital Course Reason for hospitalization: Chief Complaint: Chest pain Narrative: 26-year-old male with past medical history of anxiety and nicotine, marijuana and vaping who presented to the ER with chest pain.? The patient reportedly woke up on the morning of the and that felt short of breath and felt as if someone was sitting on his chest.? He reported that the symptoms were similar to when he has had prior difficulty with anxiety.? He reports he has had significant social stressors with the of his 5-week-old son and buying a new house.? He took his anxiety meds and tried to come down.? Despite these efforts he continued to feel short of breath and have an uncomfortable sensation in his chest.? He reports that the sensation was worse with activity.? He denies any cough, congestion, fevers or chills.? He has not had any recent ill contacts.? He denies hemoptysis.? He has not had any lower extremity swelling or edema.? In the ER his white count was normal but he had minimally elevated D-dimer in this instigated the patient having a CTA of the chest performed despite normal chest x-ray.? CTA of the chest demonstrate numerous bilateral peripheral shotty small nodule infiltrates or densities scattered throughout both lungs most prominent in the lower lobes right greater than left consider bilateral pneumonia, granulomatous disease or septic pulmonary emboli.? Patient denies any known history of granulomatous disease.? He reports that his chest pain improved after he received aspirin and Toradol in the ER.? Given the CT findings he will start on empiric antib
== END 2022-07-09 18:01 | disposition home or self-care (01) | DRG 206 ==
LOC: ANHED 22:20 → ANH3MEDSUR 07-06 00:24
PROVIDERS: Admitting Provider Internal Medicine; Emergency Provider Emergency Medicine; PCP Physician Assistant; Visit Provider Family Medicine
DX: U07.0 Vaping-related disorder (principal); K50.90 Crohn's disease, unspecified, without complications; R91.8 Other nonspecific abnormal finding of lung field; R07.89 Other chest pain; F12.20 Cannabis dependence, uncomplicated; F41.9 Anxiety disorder, unspecified; Z20.822 Contact with and (suspected) exposure to COVID-19; Z86.16 Personal history of COVID-19; S80.819A Abrasion, unspecified lower leg, initial encounter; X58.XXXA Exposure to other specified factors, initial encounter
CPT/HCPCS: 36415; 71046; 71260; 71275; 80048; 80053; 80307; 83605; 83690; 83735; 84484; 85025; 85027; 85380; 85610; 85652; 85730; 86140; 87040; 87636; 93005; 96365; 96366; 96368; 96375; 99285; A9270; C8929; G0378; J0456; J0696; J1885; Q9957; Q9967

== ENCOUNTER 2024-04-09 10:29 | Emergency (ER) | payer OTHER, SELFPAY ==
--- NOTE | ~2024-04-09 | XR_ITS ---
EXAMINATION: XR finger 1st LT min 2V DATE: 04/09/2024 11:11 INDICATION: Laceration with reasonably to the lateral first metacarpal TECHNIQUE: Dorsal palmar, lateral and oblique views of the left first digit were obtained COMPARISON: None FINDINGS: Alignment is normal. No fracture. Joint spaces are normal. Bandaging material about the base of the t humb level of the first metacarpal. No radiopaque foreign bodies. IMPRESSION: 1. No radiopaque foreign bodies or osseous abnormality. Reviewed, dictated and finalized at location A.
[2024-04-09 10:44] VITALS: BP 141/77; PULSE 74; RESP 14; TEMP 36.6; O2SAT 99
--- NOTE | 2024-04-09 12:45 | ED.WOUNDLAC ---
HPI - Wound/Laceration General Chief Complaint: Wound/Laceration Stated Complaint: left thumb laceration Time Seen by Provider: 04/09/24 12:36 Source: patient Mode of arrival: ambulatory Limitations: no limitations History of Present Illness HPI narrative: This is a 28-year-old male, with no significant past medical history, with most recent tetanus given within past 5 years, presents to the emergency department with a laceration of his left thumb. 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 He rates his pain 3/10 and described as burning. He has no other complaints at this time. Related Data Home Medications Medication Instructions Recorded Confirmed citalopram 10 mg tablet 10 mg PO DAILY 07/06/22 07/06/22 Allergies Allergy/AdvReac Type Severity Reaction Status Date / Time ASAD Allergy Severe Anaphylactic Uncoded 04/09/24 10:46 Shock Review of Systems Review of Systems: All systems reviewed & are unremarkable except as noted in HPI and below PMFSH Past Medical History Medical History Ankle fracture, right Anxiety Constipation Crohn's disease Depression Left wrist fracture Migraine Surgical History Surgical History H/O adenoidectomy Hx of tonsillectomy Family History Family History Father Congestive heart failure, Onset Age: 50 Heart disease Nicotine dependence Mother Obesity Hypothyroidism Social History Social History Social History: He recently moved into a new house with his and baby. The patient has a son born May 2022. He used to smoke half a pack of cigarettes per day but transition to vaping. He also smokes marijuana on a somewhat frequent basis. 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 He denies any IV drug use. He drinks alcohol moderately approximately once a month. He is employed as a rail car maintenance mechanic. Code status: Full code Surrogate decision maker: Smoking packs per day: 0.5 Smoking cigarettes per day: 10.0 Years smoked: 8 Smoking pack-years: 4.00 Smoking status: Current every day smoker Tobacco type: cigarettes and e-cigarettes/vaping Second hand tobacco smoke exposure: Yes Alcohol intake: never Substance use: current Substance use type: marijuana Lack of Transportation: No Lack of Food: Never True Current Housing: I Have Housing Concerned About Future Housing: No Difficulty Paying Gas/Electric Bills: No Difficulty Paying for Meds: No Currently Unemployed: No Education: High School Diploma/GED Difficulty w/ Childcare or Family Care: No Living arrangements: with family Occupation/Education: unemployed Gender identity (if verbalized by the patient): Male Spiritual care concerns: No Exam Narrative: GENERAL: Well-developed, well-nourished, and in no acute distress. HEAD: Normocephalic, atraumatic. EYES: PERRLA and EOMI. CHEST: Clear to auscultation. No respiratory distress. No wheezes rales or rhonchi HEART: Regular rate and rhythm. No murmur heard. Normal peripheral pulses. EXTREMITIES: There is a 2 cm laceration noted at the base of the left thumb. There does not appear to be any involvement of muscle belly or tendon. Range of motion of the left thumb is intact. Normal range of motion of all other extremities. No edema. SKIN: Laceration as noted above. Skin otherwise warm, dry, no rash. NEURO: Alert and oriented x3. No focal deficit. Moving all 4 limbs spontaneously PSYCH: Normal mood and affect. Course Course Emergency Course: 13:00 - X-ray not concerning for fracture or retained foreign object. The patient's laceration was closed with sutures. Please
== END 2024-04-09 13:16 | disposition home or self-care (01) ==
LOC: ANHED 13:10
PROVIDERS: Emergency Provider Preventive Medicine Aerospace Medicine; PCP Physician Assistant
DX: S61.012A Laceration without foreign body of left thumb without damage to nail, initial encounter (principal); K50.90 Crohn's disease, unspecified, without complications; F41.9 Anxiety disorder, unspecified; F32.A Depression, unspecified; F17.210 Nicotine dependence, cigarettes, uncomplicated; F17.290 Nicotine dependence, other tobacco product, uncomplicated; Z79.899 Other long term (current) drug therapy; W27.8XXA Contact with other nonpowered hand tool, initial encounter
CPT/HCPCS: 12001; 73140; 99283